=== PATIENT | male | born 1930 | race Caucasian/White ===

== ENCOUNTER 2019-07-25 08:23 | Outpatient (CLI) | payer MEDICARE, BC ==
[~2019-07-25] VITALS: Ht 190.5 cm; Wt 88.0 kg
[2019-07-25 09:10] VITALS: BP 124/71; PULSE 60; TEMP 97.2
[2019-07-25] MEDS ORDERED: ASPIRIN E.C. 8181 MG PO (09:25)
[2019-07-25] MEDS ORDERED: PROTONIX 40MG T40 MG PO (09:27)
[2019-07-25] MEDS ORDERED: HCTZ 25MG TAB25 MG PO (09:27)
[2019-07-25] MEDS ORDERED: MULTI VITAMINS1 TAB PO (09:27)
[2019-07-25] MEDS ORDERED: LOPRESSOR 550 MG/TAB PO (09:28)
[2019-07-25] MEDS ORDERED: CALCIUM 600-D 61 TAB PO (09:28)
[2019-07-25] MEDS ORDERED: CARAFATE 1GM1 G PO (09:29)
[2019-07-25] MEDS ORDERED: ZOCOR 20MG20 MG PO (09:29)
[2019-07-25] MEDS ORDERED: FOSAMAX 70MG TA70 MG PO (09:30)
[2019-07-25] MEDS ORDERED: SENNA-LAX8.6 MG PO (09:30)
[2019-07-25] MEDS ORDERED: TYLENOL 500MG500 MG PO (09:31)
--- NOTE | 2019-07-25 10:10 | NUR ---
Pt to radiology per w/c for MECCA with Stephan Nuñez RN.
--- NOTE | 2019-07-25 10:15 | NUR ---
pt received from for MECCA lumbar to be done by Dr Steven. pt has no back pain at this time, but states right leg "gives out" and can hurt. and daughter with pt. reviewed procedure and consent signed.
[2019-07-25 11:10] VITALS: BP 124/81; PULSE 72
== END 2019-07-25 14:55 | disposition home or self-care (01) ==
LOC: COL.CAR 08:23
DX: S32.040A Wedge compression fracture of fourth lumbar vertebra, initial encounter for closed fracture (principal); Z53.8 Procedure and treatment not carried out for other reasons
CPT/HCPCS: J3301; J7120